=== PATIENT | male | born 1955 | race Caucasian/White ===

== ENCOUNTER → 2017-04-25 | Outpatient (CLI) | payer BC ==
[~2017-04-25] MED LIST: MULT-658 PO; None per pt; VITA1CAP PO
== END | disposition home or self-care (01) ==
LOC: STAR 09:16
PROVIDERS: ATTEND Urology
DX: Z01.818 Encounter for other preprocedural examination (principal); R94.31 Abnormal electrocardiogram [ECG] [EKG]; C67.8 Malignant neoplasm of overlapping sites of bladder; Z79.899 Other long term (current) drug therapy
CPT/HCPCS: 81003; 87086; 93005

== ENCOUNTER 2017-05-03 10:23 | Day surgery (SDC) | payer BC ==
[~2017-05-03] VITALS: Ht 175.3 cm; Wt 121.5 kg
[2017-05-03] MEDS ORDERED: LACTATED RINGERS 1,000 ML IV SCH (11:12)
[2017-05-03 11:17] VITALS: BP 179/110
[2017-05-03] MEDS ORDERED: FENTANYL PF 100 MCG/2ML ONE ×3 (11:49→13:02)
[2017-05-03] MEDS ORDERED: MIDAZOLAM 1 MG/ML, 2ML ONE (11:49)
[2017-05-03] MEDS ORDERED: CEFAZOLIN 1,000 MG ONE ×2 (12:01)
[2017-05-03] MEDS ORDERED: MITOMYCIN 40 MG in STERILE WATER 40 ML INTVESIC ONE (12:30)
[2017-05-03] MEDS ORDERED: OXYcodone 5 MG/5 ML ORAL.SOL UDC ONE (13:02)
[2017-05-03] MEDS ORDERED: ACETAMINOPHEN 650 MG/20.3 ML UDC ONE (13:02)
[2017-05-03] MEDS: FENTANYL PF 100 MCG/2ML IV PRN ×2 (13:05→13:15)
[2017-05-03] MEDS ORDERED: ONDANSETRON 2MG/ML, 2ML IVPush PRN (13:30)
[2017-05-03] MEDS ORDERED: ACETAMINOPHEN 325 MG TABLET PO PRN (13:30)
[2017-05-03] MEDS ORDERED: LABETALOL 5MG/ML, 20ML IV PRN (13:30)
[2017-05-03] MEDS ORDERED: OXYcodone 5 MG/5 ML ORAL.SOL UDC PO PRN (13:30)
[2017-05-03] MEDS ORDERED: HYDROmorphone 1 MG/ML, 1ML IV PRN (13:30)
[2017-05-03] MEDS ORDERED: SUCCINYLCHOLINE 20 MG/ML, 10ML ONE (16:05)
[2017-05-03] MEDS ORDERED: ONDANSETRON 2MG/ML, 2ML ONE (16:05)
[2017-05-03] MEDS ORDERED: NEOSTIGMINE 1 MG/ML, 10ML ONE (16:05)
[2017-05-03] MEDS ORDERED: ROCURONIUM 10 MG/ML ONE (16:05)
[2017-05-03] MEDS ORDERED: PROPOFOL 10 MG/ML, 20ML ONE (16:05)
[2017-05-03] MEDS ORDERED: DEXAMETHASONE 4 MG/ML, 1ML ONE (16:05)
[2017-05-03] MEDS ORDERED: GLYCOPYRROLATE 0.2MG/1ML, 5ML ONE (16:05)
== END 2017-05-03 14:50 ==
LOC: OUT 10:23
PROVIDERS: ATTEND Urology
DX: D30.3 Benign neoplasm of bladder (principal)
CPT/HCPCS: 52204; 88305; J0330; J0690; J1100; J2250; J2405; J2704; J2710; J3010; J7120; J9280; J3490

== ENCOUNTER → 2020-05-12 | Outpatient (CLI) | payer OTHER | END | disposition home or self-care (01) | LOC: CFH 15:44 | PROVIDERS: ATTEND Family Medicine | DX: M51.37 Other intervertebral disc degeneration, lumbosacral region (principal); M47.816 Spondylosis without myelopathy or radiculopathy, lumbar region; M48.07 Spinal stenosis, lumbosacral region; M51.46 Schmorl's nodes, lumbar region; M25.78 Osteophyte, vertebrae | CPT/HCPCS: 72148 ==

== ENCOUNTER → 2020-05-12 | Outpatient (CLI) | payer OTHER | END | disposition home or self-care (01) | LOC: RAD 17:32 | PROVIDERS: ATTEND Family Medicine | DX: Z02.9 Encounter for administrative examinations, unspecified (principal) ==

== ENCOUNTER → 2021-01-13 | Outpatient (CLI) | payer MEDICARE ==
[~2021-01-13] MED LIST changes: +AZEL137S4 NAS; +PSEU120T10 PO; +allegra PO
[2021-01-13 12:09] LABS: BASOPHILS % (AUTO) 1 % (0-1); EOSINOPHILS % (AUTO) 2 % (1-7); LYMPHOCYTES % (AUTO) 23 % (22-44); MEAN CORPUSCULAR HEMOGLOBIN 29.4 pg (27.5-34.5); MEAN CORPUSCULAR HGB CONC 33.4 g/dL (33.2-36.2); MEAN PLATELET VOLUME 7.8 fL (7.4-10.4); MONOCYTES % (AUTO) 7 % (2-9); NEUTROPHILS % (AUTO) 66 % (42-75); PLATELET COUNT 237 x10^3/uL (130-400); RED BLOOD COUNT 5.39 x10^6/uL (4.38-5.82); RED CELL DISTRIBUTION WIDTH 14.5 % (9.4-14.8)
[2021-01-13 12:13] LABS: MICROSCOPIC AUTO
[2021-01-13 12:18] LABS: INTERNATIONAL NORMALIZED RATIO 0.98 (0.93-1.1); PROTHROMBIN TIME 10.5 Seconds (9.6-11.5)
[2021-01-13 12:55] LABS: ANION GAP 5 mmol/L (5-15); CHLORIDE 110 mmol/L (98-107)
[2021-01-13 12:58] LABS: CREATININE 0.91 mg/dL (0.7-1.3)
== END | disposition home or self-care (01) ==
LOC: STAR 10:55
PROVIDERS: ATTEND Urology
DX: Z01.818 Encounter for other preprocedural examination (principal); C67.9 Malignant neoplasm of bladder, unspecified; I44.4 Left anterior fascicular block; I51.7 Cardiomegaly; Z20.822 Contact with and (suspected) exposure to COVID-19
CPT/HCPCS: 36415; 80048; 81001; 85025; 85610; 87086; 93005; U0003; U0005

== ENCOUNTER 2021-01-18 13:20 | Day surgery (SDC) | payer MEDICARE ==
[~2021-01-18] VITALS: Ht 175.3 cm; Wt 119.3 kg
[2021-01-18] MEDS ORDERED: ONDANSETRON 2MG/ML, 2ML IVPush PRN (14:00)
[2021-01-18] MEDS ORDERED: PROMETHAZINE 25 MG/ML, 1ML IVPush PRN (14:00)
[2021-01-18] MEDS ORDERED: HYDROmorphone 1 MG/ML, 1ML INJ IVPush PRN (14:00)
[2021-01-18] MEDS ORDERED: OXYcodone 5 MG/5 ML ORAL.SOL UDC PO PRN (14:00)
[2021-01-18] MEDS ORDERED: ACETAMINOPHEN 325 MG TABLET PO PRN (14:00)
[2021-01-18] MEDS ORDERED: hydrALAzine 20 MG/ML, 1ML IV PRN (14:00)
[2021-01-18] MEDS ORDERED: LABETALOL 5MG/ML, 20ML IV PRN (14:00)
[2021-01-18] MEDS ORDERED: MIDAZOLAM 1 MG/ML, 2ML ONE (14:22)
[2021-01-18] MEDS ORDERED: CHLORHEXIDINE 15 ML UDC ONE (14:23)
[2021-01-18] MEDS ORDERED: FENTANYL PF 250 MCG/5ML ONE (14:23)
[2021-01-18 14:24] VITALS: BP 164/92
[2021-01-18] MEDS ORDERED: CHLORHEXIDINE 15 ML UDC PO ONE (14:30)
[2021-01-18] MEDS ORDERED: LACTATED RINGERS 1,000 ML IV SCH (14:30)
[2021-01-18] MEDS ORDERED: ROCURONIUM 10MG/ML,5ML ONE ×2 (14:39→14:54)
[2021-01-18] MEDS ORDERED: CEFAZOLIN 1,000 MG ONE ×2 (14:54)
[2021-01-18] MEDS ORDERED: PROPOFOL 10 MG/ML, 20ML ONE (14:54)
[2021-01-18] MEDS ORDERED: DEXAMETHASONE 4 MG/ML, 1ML ONE ×2 (14:55)
[2021-01-18] MEDS ORDERED: GEMCITABINE HCL 1,000 MG in SODIUM CHLORIDE 0.9% 23.7 ML IS ONE ×3 (15:00)
[2021-01-18] MEDS ORDERED: FENTANYL PF 100 MCG/2ML ONE ×2 (15:33→15:52)
[2021-01-18] MEDS: FENTANYL PF 100 MCG/2ML IV PRN ×4 (15:37→16:30)
[2021-01-18] MEDS ORDERED: OPIUM/BELLADONNA SUPP.RECT 16.2-60 MG ONE (15:38)
[2021-01-18] MEDS ORDERED: OPIUM/BELLADONNA SUPP.RECT 16.2-60 MG PR PRN (16:00)
== END 2021-01-18 18:00 | disposition home or self-care (01) ==
LOC: OUT 13:20
PROVIDERS: ATTEND Urology
DX: C67.2 Malignant neoplasm of lateral wall of bladder (principal)
CPT/HCPCS: 51720; 52235; 88307; J0690; J1100; J2250; J2704; J3010; J7120; J9201